=== PATIENT | male | born 1960 | race Caucasian/White ===

== ENCOUNTER → 2019-02-16 08:38 | Outpatient (CLI) | payer OTHER, SELFPAY ==
--- NOTE | 2019-02-16 | DI.US.S_ITS ---
PROCEDURE: US ABD AORTA ANEURYSM SCREEN INDICATIONS: AAA SCREENING TECHNIQUE: Real time scanning was performed of the aorta and iliac arteries, with image documentation. COMPARISON: [facility], , ABD AORTA ANEURYSM SCREENING, 05/18/2013, 11:17. FINDINGS: Aorta: Proximal aortic diameter measures 2.4 cm. Mid-aorta measures 2.1 cm. Distal aortic diameter is 1.7 cm. Iliac arteries: Right common iliac artery measures 1.3 cm. Left common iliac artery measures 1.1 cm. IMPRESSION: No aneurysmal dilation. Dictated by: Lalita Ewing M.D. on 02/16/2019 at 11:20 Approved by: Lalita Ewing M.D. on 02/16/2019 at 11:21
== END ==
PROVIDERS: PCP Student in an Organized Health Care Education/Training Program; Visit Provider Student in an Organized Health Care Education/Training Program
DX: Z13.6 Encounter for screening for cardiovascular disorders (principal)
CPT/HCPCS: 76706

== ENCOUNTER → 2023-06-12 10:33 | Outpatient (CLI) | payer OTHER, SELFPAY ==
--- NOTE | 2023-06-12 | DI.RAD.S_ITS ---
PROCEDURE: XR SHOULDER RT MIN 2V INDICATIONS: Pain in right shoulder TECHNIQUE: 3 views of the shoulder were acquired. COMPARISON: None. FINDINGS: Bones: No fractures or dislocations. No suspicious bony lesions. Visualized ribs appear intact. [id number] acromioclavicular degenerative narrowing. No erosions. Soft tissues: No suspicious soft tissue calcifications. IMPRESSION: [id number] acromioclavicular arthritic change. Dictated by: Lalita Ewing M.D. on 06/12/2023 at 16:52 Approved by: Llaita Ewing M.D. on 06/12/2023 at 16:53
== END ==
PROVIDERS: PCP Student in an Organized Health Care Education/Training Program; Referring Provider Student in an Organized Health Care Education/Training Program; Visit Provider Student in an Organized Health Care Education/Training Program
DX: M25.511 Pain in right shoulder (principal)
CPT/HCPCS: 73030

== ENCOUNTER → 2023-06-18 08:15 | Outpatient (CLI) | payer OTHER, SELFPAY ==
--- NOTE | 2023-06-18 | DI.US.S_ITS ---
PROCEDURE: US ABD AORTA ANEURYSM SCREEN INDICATIONS: AAA SCREENING TECHNIQUE: Real time scanning was performed of the aorta and iliac arteries, with image documentation. COMPARISON: [facility], ABD AORTA ANEURYSM SCREEN, 02/16/2019, 9:00. FINDINGS: Aorta: Proximal aortic diameter measures 2.4 cm. Mid-aorta measures 1.7 cm. Distal aortic diameter is 1.7 cm. Iliac arteries: Right common iliac artery measures 1.2 cm. Left common iliac artery measures 1.1 cm. IMPRESSION: No ectasia or aneurysmal dilatation of the abdominal aorta or iliac arteries. Dictated by: Kala Aquino M.D. on 06/18/2023 at 8:59 Approved by: Kala Aquino M.D. on 06/18/2023 at 8:59
== END ==
PROVIDERS: PCP Student in an Organized Health Care Education/Training Program; Referring Provider Student in an Organized Health Care Education/Training Program; Visit Provider Student in an Organized Health Care Education/Training Program
DX: Z13.6 Encounter for screening for cardiovascular disorders (principal)
CPT/HCPCS: 76706

== ENCOUNTER → 2023-10-22 10:19 | Outpatient (CLI) | payer OTHER, SELFPAY ==
--- NOTE | 2023-10-22 10:22 | DI.RAD.S_ITS ---
PROCEDURE: XR HIP W PEL IF DONE RT 2V INDICATIONS: right hip pain, right knee pain TECHNIQUE: 2 views of the hip were acquired. COMPARISON: None. FINDINGS: Bones: No fractures or dislocations. The visualized pelvic ring appears intact. Soft tissues: Surgical rectal pelvis /prostate IMPRESSION: No acute bony abnormality. Dictated by: Michael Bowles M.D. on 10/22/2023 at 14:52 Approved by: Michael Bowles M.D. on 10/22/2023 at 14:53
--- NOTE | 2023-10-22 10:22 | DI.RAD.S_ITS ---
PROCEDURE: XR KNEE RT 3V INDICATIONS: right hip pain, right knee pain TECHNIQUE: 3 views of the knee were acquired. COMPARISON: None. FINDINGS: Bones: No fractures or dislocations. No suspicious bony lesions. Soft tissues: No evident suprapatellar joint effusion seen. IMPRESSION: No acute bony abnormality or significant effusion. Dictated by: Michael Bowles M.D. on 10/22/2023 at 14:53 Approved by: Michael Bowles M.D. on 10/22/2023 at 14:55
== END ==
LOC: RAD 10:20
PROVIDERS: PCP Student in an Organized Health Care Education/Training Program; Referring Provider Student in an Organized Health Care Education/Training Program; Visit Provider Student in an Organized Health Care Education/Training Program
DX: M25.561 Pain in right knee (principal); M25.551 Pain in right hip
CPT/HCPCS: 73502; 73562

== ENCOUNTER → 2024-12-31 13:38 | Outpatient (CLI) | payer OTHER, SELFPAY ==
--- NOTE | 2024-12-31 13:42 | DI.RAD.S_ITS ---
PROCEDURE: XR HIP W PEL IF DONE JR MIN 4V INDICATIONS: PAIN TECHNIQUE: AP pelvis with lateral view(s) of the bilateral hip(s). COMPARISON: None. FINDINGS: Bones: No fractures or dislocations. Mild to moderate osteoarthritic degenerative change of the bilateral hips includes joint space narrowing, marginal osteophytosis and acetabular subchondral sclerosis. Pelvic ring appears intact. No suspicious bony lesions. Soft tissues: The visualized bowel gas pattern is normal. No suspicious soft tissue calcifications. Inferior pelvic surgical clips. 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 Dictated by: Dom Epstein M.D. on 01/01/2025 at 2:41 Approved by: Dom Epstein M.D. on 01/01/2025 at 2:42
--- NOTE | 2024-12-31 13:42 | DI.RAD.S_ITS ---
PROCEDURE: XR KNEE RT 1TO2V INDICATIONS: PAIN TECHNIQUE: 2 views of the knee were acquired. COMPARISON: [facility], , XR KNEE RT 3V, 10/22/2023, 10:47. FINDINGS: Bones: No fractures or dislocations. No suspicious bony lesions. Soft tissues: Trace joint effusion. No suspicious soft tissue calcifications. IMPRESSION: No acute bony abnormality. Trace knee joint effusion. Dictated by: Dom Epstein M.D. on 01/01/2025 at 2:43 Approved by: Dom Epstein M.D. on 01/01/2025 at 2:44
--- NOTE | 2024-12-31 13:42 | DI.RAD.S_ITS ---
PROCEDURE: XR KNEE LT 1TO2V INDICATIONS: PAIN TECHNIQUE: 3 views of the knee were acquired. COMPARISON: [facility], CR, XR KNEE RT 3V, 10/22/2023, 10:47. FINDINGS: Bones: No fractures or dislocations. No suspicious bony lesions. Soft tissues: Trace joint effusion. No suspicious soft tissue calcifications. IMPRESSION: No acute bony abnormality. Trace knee joint effusion. Dictated by: Dom Epstein M.D. on 01/01/2025 at 2:42 Approved by: Dom Epstein M.D. on 01/01/2025 at 2:43
== END ==
LOC: RAD 13:40
PROVIDERS: PCP Nurse Practitioner Family; Referring Provider Nurse Practitioner Family; Visit Provider Nurse Practitioner Family
DX: M25.552 Pain in left hip (principal); M25.562 Pain in left knee; G89.29 Other chronic pain
CPT/HCPCS: 73522; 73560

== ENCOUNTER → 2025-01-11 07:28 | Outpatient (CLI) | payer OTHER, SELFPAY ==
--- NOTE | 2025-01-11 07:29 | DI.US.S_ITS ---
PROCEDURE: US ABD AORTA ANEURYSM SCREEN INDICATIONS: former tobacco use. TECHNIQUE: Real time scanning was performed of the aorta and iliac arteries, with image documentation. COMPARISON: [facility], , ABD AORTA ANEURYSM SCREEN, 06/18/2023, 8:36. FINDINGS: Aorta: Proximal aortic diameter measures 2.6 cm. Mid-aorta measures 2.3 cm. Distal aortic diameter is 2.1 cm. Atherosclerosis is seen. No focal aneurysm. Iliac arteries: Right common iliac artery measures 1.5 cm. Left common iliac artery measures 1.5 cm. IMPRESSION: Mild abdominal aorta ectasia. Follow-up in five years. Dictated by: Catherine Hoang M.D. on 01/11/2025 at 13:32 Approved by: Catherine Hoang M.D. on 01/11/2025 at 13:34
== END ==
PROVIDERS: PCP Nurse Practitioner Family; Referring Provider Nurse Practitioner Family; Visit Provider Nurse Practitioner Family
DX: Z13.6 Encounter for screening for cardiovascular disorders (principal); I77.810 Thoracic aortic ectasia; I70.90 Unspecified atherosclerosis; Z87.891 Personal history of nicotine dependence
CPT/HCPCS: 76706